=== PATIENT | female | born 1955 | race Caucasian/White ===

== ENCOUNTER 2016-07-09 13:39 | Emergency (ER) | payer OTHER ==
--- NOTE | 2016-07-09 15:28 | US ---
Exam: Left lower extremity venous ultrasound COMPARISON: None INDICATION: Left lower extremity pain and swelling. FINDINGS: The deep venous system of the left lower extremity was evaluated with color flow, compression, augmentation and spectral analysis. The deep venous system the lower extremity from the popliteal vein up to the common femoral vein is patent without evidence of DVT. Proximal calf veins appear patent as well. Focused ultrasound evaluation in the region of patient's pain near the greater trochanter and lateral hip/thigh demonstrated no fluid collection or apparent sonographic abnormality. IMPRESSION: No evidence of DVT in the left lower extremity. Report was uploaded to the EMR at 1524 hours 07/09/2016.
[2016-07-09 16:17] LABS: ABSOLUTE NEUTROPHIL COUNT 6.1 K/mm3 (1.8-7.7); BASO # 0.1 K/mm3 (0.0-0.2); BASO % 0.5 % (0.2-1.0); EOS # 0.2 (0.0-0.5); EOS % 1.8 % (0.9-2.9); HEMATOCRIT 40.4 % (37.0-47.0); HEMOGLOBIN 13.6 gm/l (12.0-16.0); IMM NEUT% 0.4 % (0-1); LYMPH # 3.1 (1.0-4.8); LYMPH % 30.4 % (15-45); MEAN CELL VOLUME 95.1 fl (81.0-99.0); MEAN CORPUSCULAR HGB CONC 33.7 g/dl (33.0-37.0); MEAN PLATELET VOLUME 8.9 fl (7.4-10.4); MONO # 0.6 (0.0-0.8); MONO % 5.7 % (4-12); NEUT % 61.2 % (43-75); PLATELET COUNT 306 K/mm3 (130-400); RED CELL DISTRIBUTION WIDTH 13.4 % (11.5-14.5)
[2016-07-09 16:38] LABS: CALCIUM 9.4 mg/dL (8.6-10.3)
[2016-07-09] MEDS: IOPAMIDOL 370 (76%) IV.SOLN 150 ML IV ONE (17:22)
--- NOTE | 2016-07-09 17:52 | CT ---
CTA ILIOFEMORAL RUNOFF History: Thigh pain on the left with history of peripheral artery disease. Comparison: None. Procedure: 1 mm axial images were obtained through the abdomen and lower extremities following the administration of 150cc's of Isovue-370 intravenous contrast. Stacked reconstructed 3 mm images were then photographed in the axial, coronal and sagittal planes. 3-D reconstructed MIP images were also performed on the scanner workstation. Findings: Scans through the lung bases demonstrate minimal left basilar atelectasis. The liver and spleen demonstrate a relatively normal appearance with heterogeneous enhancement of the spleen noted due to arterial phase of contrast enhancement. The gallbladder is surgically absent. The pancreas and adrenal glands are not enlarged. The kidneys enhance symmetrically with no perinephric inflammatory stranding observed. The bowel loops are of normal caliber without dilatation or obstruction. There is evidence suggesting prior appendectomy. The bladder contour is appropriate. No enlarged adenopathy is seen. Mild lumbar degenerative changes are present. Evaluation of the abdominal aorta demonstrates atherosclerotic disease particularly evident distally. The celiac axis is widely patent as well as the superior mesenteric artery origin. The renal arteries demonstrate a normal course and caliber with no significant stenosis visualized. The inferior mesenteric artery is of small caliber though appears to be patent. Evaluation of the right lower extremity demonstrates atherosclerotic disease involving the distal right common iliac artery at the bifurcation narrowing the lumen by approximately 40% as original diameter. The internal and external iliac arteries appear to be patent. The common femoral artery demonstrates mild disease without a significant stenosis. The deep profunda vessel is unremarkable. The superficial femoral artery appears to be patent with no discrete stenosis observed. There is disease of the popliteal artery narrowing the lumen by approximately 50% original diameter. The anterior tibial artery appears to be a small caliber and is not visualized beyond the mid calf. The peroneal and posterior tibial arteries extend to the level of the ankle. Evaluation of the left lower extremity demonstrates atherosclerotic disease of the distal left common iliac artery at the bifurcation narrowing the lumen by approximately 40% original diameter. The internal iliac artery demonstrates mild disease without a significant stenosis. The external iliac and common femoral arteries demonstrate no discrete stenosis. The deep profunda vessel is unremarkable. The superficial femoral artery appears to be patent. There is disease of the popliteal artery without production of a significant stenosis. The posterior tibial artery appears to extend to the level of the patient's ankle. The peroneal and anterior tibial arteries appear to be of small caliber and extend only to the approximate level of the midcalf. Impression: 1. Mild atherosclerotic disease of the aorta and lower extremity branches. 2. 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 3. A 50% diameter stenosis of the right popliteal artery. 4. Small caliber of the right anterior tibial, and the left peroneal and anterior tibial arteries which extend only to the level of the mid calves. 5. Left basilar atelectasis. 6. Prior cholecystectomy and appendectomy. 7. Lumbar degenerative changes.
== END 2016-07-09 19:12 | disposition home or self-care (01) ==
LOC: ED 13:39
DX: M79.605 Pain in left leg (principal); I73.9 Peripheral vascular disease, unspecified; I10 Essential (primary) hypertension; F17.210 Nicotine dependence, cigarettes, uncomplicated
CPT/HCPCS: 85025; 80048; 73706; 99283 ×2; 93971; Q9967